=== PATIENT | female | born 1995 | race Caucasian/White ===

== ENCOUNTER 2024-02-08 19:38 | Emergency (ER) | payer OTHER, SELFPAY ==
[2024-02-08 19:40] VITALS: BP 130/74
[2024-02-08 20:00] VITALS: BMI 30.7
[2024-02-08 20:09] LABS: Urine Albumin Trace (Neg - Trace); Urine Bilirubin Negative (Negative); Urine Character Slightly Cloudy (Clear); Urine Color Yellow; Urine Glucose Negative (Negative); Urine Ketone Negative (Negative); Urine Leukocyte 2+ (Negative); Urine Nitrite Negative (Negative); Urine Occult Blood 2+ (Negative); Urine Urobilinogen Negative (Neg - 1+)
--- NOTE | 2024-02-08 20:09 | ED.GENMED ---
History of Present Illness
General
Chief Complaint: Urinary Symptoms
Source: patient
Time Seen by Provider: 02/08/24 19:54
History of Present Illness
History of Present Illness:
28-year-old female presents with 3 days worth of urinary frequency and burning. No flank pain or fever. No nausea or vomiting. She states this feels like a urinary tract infection she had 3 or 4 years ago. No other complaints at this time
Phy Exam
Physical Exam
Physical Exam:
General: Well-appearing female no acute respiratory distress
HEENT: Normocephalic
Heart: Regular rate and rhythm no murmurs
Lungs: Clear no wheeze
Abdomen soft nontender no costovertebral angle tenderness no guarding
Remedies: No cyanosis
Course
Orders/Labs/Results
Orders:
Orders
02/08/24 19:57
Urinalysis Reflex To Culture Urgent
Date Specimen was Collected: 02/08/24
Time Specimen was Collected: 19:50
Urine Microscopic Reflex Cult Urgent
Urine Culture Urgent
KEENA Source: U
Specimen Description:
Date Specimen was Collected: 02/08/24
Time Specimen was Collected: 19:50
02/08/24 20:25
Cefdinir [Omnicef] 300 mg PO NOW STA
Abnormal Lab Results
02/08/24
19:57
Ur Occult Blood Reflex 2+ A
(Negative)
Leukocyte Esterase Rfl 2+ A
(Negative)
Urine RBC 16-20 A /HPF
(0-2)
Urine WBC (Reflex) >100 A /HPF
(0-5)
Urine Bacteria (Reflex) Few A
(Negative)
Vital Signs
Initial and Last Documented VS:
Initial Vital Signs
Temp Pulse Resp BP Pulse Ox
98.9 F 90 18 130/74 98
02/08/24 19:40 02/08/24 19:40 02/08/24 19:40 02/08/24 19:40 02/08/24 19:40
Last Documented Vital Signs
Temp Pulse Resp BP Pulse Ox
98.9 F 90 18 130/74 98
02/08/24 19:40 02/08/24 19:40 02/08/24 19:40 02/08/24 19:40 02/08/24 19:40
MDM/Problems Addressed
Differential Diagnosis Includes:
Urinary symptoms. Consider UTI versus cystitis. No clinical concern for pyelonephritis. Vital signs are stable. Urinalysis pending
*Critical Care Note
Total Time (30-74mins, 75-104mins- exclusive of procedures): Not Applicable
Update Note
Update Note:
Urinalysis concerning for UTI but patient stable nontoxic no clinical concern for pyelonephritis. Will start Omnicef. Recommend hydration at home stable for
ED Attending Note
-
Portions of this chart may have been created with voice recognition software.� Occasional wrong word or��sound alike� substitutions may have occurred due to the inherent limitations of voice recognition software.
Discharge Plan
Departure
Patient Disposition: Home (Routine Discharge)
Date of Disposition: 02/08/24
Time of Disposition: 20:26
Patient with high blood pressure during this ER visit?: No
Discharge Problem:
Urinary tract infection
Instructions: Urinary Tract Infection, Adult (DC)
Prescriptions:
New
cefdinir 300 mg capsule
300 mg PO BID Qty: 14 0RF
No Action
sulfamethoxazole-trimethoprim 800 MG/160 MG tablet
1 tab PO BID Qty: 20 0RF
Referrals:
Tere Chan MD [Family Provider] -
Activity Restrictions/Additional Instructions:
Drink plenty fluids. Use antibiotics as directed. Return here for fever,vomiting or other concerning findings
Interventions
Interventions:
*Risk Screen - Suicide Last Done: 02/08/24 19:40
*General Assessment Last Done: 02/08/24 20:01
*Neglect/Abuse Screening Last Done: 02/08/24 19:40
ED- Fall Risk Assessment Last Done: 02/08/24 20:01
*ED COVID-19 Vaccine History Last Done: 02/08/24 20:01
ED-Female Genitourinary Assessment Last Done: 02/08/24 20:00
Discharge Date and Time
Print Language: NIGERIAN
[2024-02-08 20:19] LABS: Urine White Cell >100 /HPF (0-5)
[2024-02-08 20:20] LABS: Urine Bacteria Few (Negative); Urine Red Blood Cell 16-20 /HPF (0-2)
[2024-02-08] MEDS: OMNICEF 300 MG PO (20:28)
== END 2024-02-08 20:35 | disposition home or self-care (01) ==
LOC: EMR 19:38
PROVIDERS: EMERGENCY PHYSICIAN Emergency Medicine; FAMILY PHYSICIAN Internal Medicine
DX: N39.0 Urinary tract infection, site not specified (principal); Z87.440 Personal history of urinary (tract) infections
CPT/HCPCS: 99282; 81003; 81015; 87077; 87086